=== PATIENT | male | born 2000 | race Hispanic/Latino ===

== ENCOUNTER 2021-05-03 07:34 | Emergency (ER) | payer SELFPAY ==
[~2021-05-03] VITALS: Ht 170.2 cm; Wt 114.1 kg
[2021-05-03] MEDS ORDERED: ONDANSETRON HCL INJ 2MG/ML 2ML 2 MG/ML VIAL IV STA (08:21)
[2021-05-03] MEDS ORDERED: MORPHINE SULFATE INJ 4 MG/ML INJ 1ML IV ONE (08:30)
[2021-05-03] MEDS ORDERED: MORPHINE SULFATE INJ 4 MG/ML INJ 1ML ONE (08:56)
[2021-05-03] MEDS ORDERED: ONDANSETRON HCL INJ 2MG/ML 2ML 2 MG/ML VIAL ONE (08:56)
[2021-05-03] MEDS ORDERED: KETOROLAC TROMETHAMINE 30 MG/ML VIAL ONE (08:56)
== END 2021-05-03 11:27 | disposition home or self-care (01) ==
LOC: FSED 08:20
DX: R10.13 Epigastric pain (principal); R10.11 Right upper quadrant pain; K80.80 Other cholelithiasis without obstruction; F17.210 Nicotine dependence, cigarettes, uncomplicated
CPT/HCPCS: 71046; 74176; 76705; 80048; 80076; 81003; 85025; 96374; 96375; 99284; J2270; J2405; J1885

== ENCOUNTER 2022-04-11 02:29 | Emergency (ER) | payer SELFPAY ==
[~2022-04-11] VITALS: Ht 170.2 cm; Wt 106.6 kg
[2022-04-11] MEDS ORDERED: ONDANSETRON HCL INJ 2MG/ML 2ML 2 MG/ML VIAL IV STA (02:33)
[2022-04-11 02:40] LABS: BASOPHILS % 0.3 % (0.0-1.0); EOSINOPHILS # (AUTO) 0.1 (0.0-0.4); EOSINOPHILS % 0.8 % (0.0-6.0); HEMATOCRIT 50.5 % (38.2-49.6); HEMOGLOBIN 16.6 g/dL (14.0-18.0); LYMPHOCYTES # (AUTO) 2.8 (1.0-3.2); MEAN CORPUSCULAR HEMOGLOBIN 29.3 pg (28-32); MEAN CORPUSCULAR HGB CONC 32.9 g/dL (31-35); MEAN CORPUSCULAR VOLUME 89.2 fL (81-99); MONOCYTES # (AUTO) 0.8 (0.2-0.8); MONOCYTES % 6.8 % (4.4-11.3); NEUTROPHILS # (AUTO) 7.9 (2.1-6.9); NEUTROPHILS % 67.6 % (38.7-80.0); PLATELET COUNT 260 x10e3/uL (140-360); RED BLOOD COUNT 5.66 x10e6/uL (4.3-5.7); RED CELL DISTRIBUTION WIDTH 12.7 % (11.7-14.4)
[2022-04-11] MEDS ORDERED: Morphine 4mg INJECTION 4 MG/ML INJ IV ONE (02:45)
[2022-04-11] MEDS ORDERED: DICYCLOMINE HCL 20 MG/2 ML VIAL IM ONE (02:45)
[2022-04-11 03:02] LABS: ALBUMIN 4.5 g/dL (3.5-5.0); ANION GAP 15.7 mmol/L (8-16); CALCIUM 9.3 mg/dL (8.4-10.2); CREATININE, SERUM 1.06 mg/dL (0.72-1.25); POTASSIUM 3.7 mmol/L (3.5-5.1)
[2022-04-11] MEDS ORDERED: DICYCLOMINE HCL20 MG PO (03:10)
[2022-04-11] MEDS ORDERED: ONDANSETRON ODT4 MG PO (03:10)
[2022-04-11] MEDS ORDERED: ACETAMINOPHEN-1 EAC4 PO (03:10)
[2022-04-11] MEDS ORDERED: KETOROLAC TROMETHAMINE 30 MG/ML VIAL IV STA (03:16)
[2022-04-11] MEDS ORDERED: FENTANYL CITRATE/PF 100MCG/2 ML INJ IV ONE (04:00)
[2022-04-11 04:29] VITALS: BP 132/66
== END 2022-04-11 04:32 | disposition home or self-care (01) ==
LOC: ER 02:34
DX: R10.11 Right upper quadrant pain (principal); R11.2 Nausea with vomiting, unspecified; K80.80 Other cholelithiasis without obstruction; F17.210 Nicotine dependence, cigarettes, uncomplicated
CPT/HCPCS: 36415; 80053; 83690; 85025; 99283; C9113; J0500; J1885; J2270; J2405; J3010